=== PATIENT | male | born 1970 | race Caucasian/White ===

== ENCOUNTER 2018-03-29 14:38 | Outpatient (CLI) | payer OTHER ==
[~2018-03-29 14:38] MED LIST: OMEP-84 PO
== END 2018-03-29 23:59 | disposition home or self-care (01) ==
LOC: RAD 14:38
PROVIDERS: ATTEND Chiropractor
DX: M48.07 Spinal stenosis, lumbosacral region (principal)
CPT/HCPCS: 72110; 72190

== ENCOUNTER 2020-09-18 15:15 | Outpatient (CLI) | payer BC ==
[2020-09-18 19:34] LABS: BASOPHILS % (AUTO) 0.4 % (0-1); EOSINOPHILS # (AUTO) 0.7 X10'3 (0-0.9); EOSINOPHILS % (AUTO) 7.6 % (0-6); HEMATOCRIT 50.3 % (42.0-52.0); HEMOGLOBIN 16.6 g/dl (14.0-17.9); LYMPHOCYTES # (AUTO) 3.4 X10'3 (1.1-4.8); LYMPHOCYTES % (AUTO) 37.2 % (21-51); MEAN CORPUSCULAR HEMOGLOBIN 30.2 PG (27.0-31.0); MEAN CORPUSCULAR VOLUME 91.5 FL (78-98); MEAN PLATELET VOLUME 9.5 FL (7.4-10.4); MONOCYTES # (AUTO) 0.7 X10'3 (0-0.9); MONOCYTES % (AUTO) 7.6 % (2-12); NEUTROPHILS # (AUTO) 4.3 X10'3 (1.8-7.7); NEUTROPHILS % (AUTO) 47.2 % (42-75); PLATELET COUNT 250 X10'3 (140-440); RED CELL DISTRIBUTION WIDTH 14.5 % (11.5-14.5)
[2020-09-18 19:41] LABS: ALANINE AMINOTRANSFERASE 21 U/L (12-78); ALBUMIN/GLOBULIN RATIO 1.1 (1.1-1.5); ALKALINE PHOSPHATASE 73 IU/L (46-116); AMYLASE 49 U/L (25-115); ANION GAP 7 (8-16); ASPARTATE AMINO TRANSFERASE 21 U/L (10-37); BILIRUBIN,TOTAL 0.6 MG/DL (0.1-1.0); BLOOD UREA NITROGEN 11 MG/DL (7-18); BUN/CREATININE RATIO 10.7 (5.4-32.0); C-REACTIVE PROTEIN 0.09 MG/DL (0.0-0.5); CALCIUM 9.2 MG/DL (8.5-10.1); CHLORIDE 106 MMOL/L (99-107); CREATININE 1.03 MG/DL (0.60-1.10); GLUCOSE 89 MG/DL (70-104); LIPASE 110 U/L (73-393); POTASSIUM 4.2 MMOL/L (3.5-5.1); SODIUM 143 MMOL/L (135-145); TOTAL CARBON DIOXIDE 29.9 MMOL/L (24-32); TOTAL PROTEIN 7.6 G/DL (6.4-8.2); eGFR 77 ML/MIN
== END 2020-09-18 23:59 | disposition home or self-care (01) ==
LOC: LAB 15:15
PROVIDERS: ATTEND Family Medicine
DX: K21.9 Gastro-esophageal reflux disease without esophagitis (principal); R10.9 Unspecified abdominal pain
CPT/HCPCS: 36415; 80053; 82150; 83690; 85025; 85651; 86140

== ENCOUNTER 2020-09-26 10:35 | Outpatient (CLI) | payer BC | END 2020-09-26 23:59 | disposition home or self-care (01) | LOC: RAD 10:35 | PROVIDERS: ATTEND Family Medicine | DX: K86.89 Other specified diseases of pancreas (principal) | CPT/HCPCS: 76775 ==

== ENCOUNTER 2020-11-04 15:47 | Day surgery (SDC) | payer BC ==
[~2020-11-04] VITALS: Ht 182.9 cm; Wt 92.3 kg
[2020-11-04 16:00] VITALS: BP 142/78
[2020-11-04] MEDS ORDERED: NO HOME MEDS (16:27)
[2020-11-04] MEDS ORDERED: MAGN24002 PO (16:29)
[2020-11-04] MEDS ORDERED: LIDOcaine Viscous 15ml cup ONE (17:35)
[2020-11-04] MEDS ORDERED: MIDAZolam 1 MG/ML 5ML VIAL ONE (17:35)
[2020-11-04] MEDS ORDERED: fentaNYL/PF 50MCG/1 ML 2ML syringe ONE (17:35)
[2020-11-04 18:35] VITALS: BP 129/79
[2020-11-04 18:45] VITALS: BP 128/81
[2020-11-04 18:55] VITALS: BP 120/84
[2020-11-04 19:05] VITALS: BP 128/72
== END 2020-11-04 19:15 | disposition home or self-care (01) ==
LOC: GI LAB 15:47
PROVIDERS: ATTEND Internal Medicine Gastroenterology
DX: Z12.11 Encounter for screening for malignant neoplasm of colon (principal); R10.13 Epigastric pain; K57.30 Diverticulosis of large intestine without perforation or abscess without bleeding; K63.89 Other specified diseases of intestine; K29.80 Duodenitis without bleeding; K26.9 Duodenal ulcer, unspecified as acute or chronic, without hemorrhage or perforation; K21.00 Gastro-esophageal reflux disease with esophagitis, without bleeding; K29.70 Gastritis, unspecified, without bleeding
CPT/HCPCS: 43239; 45380; 99152; 99153; J2250; J3010; J7040; A4620

== ENCOUNTER → 2021-05-28 | Outpatient (CLI) | payer BC ==
[~2021-05-28] MED LIST changes: +MAGN24002 PO; +NO HOME MEDS; -OMEP-84 PO
[2021-05-28 15:43] LABS: BASOPHILS # (AUTO) 0.1 X10'3 (0-0.2); BASOPHILS % (AUTO) 0.9 % (0-1); EOSINOPHILS # (AUTO) 0.2 X10'3 (0-0.9); EOSINOPHILS % (AUTO) 3.4 % (0-6); HEMATOCRIT 47.5 % (42.0-52.0); LYMPHOCYTES # (AUTO) 2.5 X10'3 (1.1-4.8); LYMPHOCYTES % (AUTO) 37.7 % (21-51); MEAN CORPUSCULAR HEMOGLOBIN 29.8 PG (27.0-31.0); MEAN CORPUSCULAR HGB CONC 33.7 g/dL (33.0-36.5); MEAN CORPUSCULAR VOLUME 88.5 FL (78-98); MONOCYTES # (AUTO) 0.6 X10'3 (0-0.9); MONOCYTES % (AUTO) 8.8 % (2-12); NEUTROPHILS # (AUTO) 3.3 X10'3 (1.8-7.7); NEUTROPHILS % (AUTO) 49.2 % (42-75); PLATELET COUNT 251 X10'3 (140-440); RED BLOOD COUNT 5.36 X10'6 (4.70-6.10); RED CELL DISTRIBUTION WIDTH 13.9 % (11.5-14.5); WHITE BLOOD COUNT 6.7 X10'3 (4.5-11.0)
[2021-05-28 16:08] LABS: ALANINE AMINOTRANSFERASE 25 U/L (12-78); ALBUMIN/GLOBULIN RATIO 1.3 (1.1-1.5); ALKALINE PHOSPHATASE 64 IU/L (46-116); ANION GAP 7 (8-16); ASPARTATE AMINO TRANSFERASE 17 U/L (10-37); BILIRUBIN,TOTAL 0.5 MG/DL (0.1-1.0); BLOOD UREA NITROGEN 13 MG/DL (7-18); BUN/CREATININE RATIO 12.9 (5.4-32.0); CALCIUM 9.6 MG/DL (8.5-10.1); CHLORIDE 105 MMOL/L (99-107); CHOLESTEROL 195 MG/DL (0-200); CREATININE 1.01 MG/DL (0.60-1.10); GLUCOSE 91 MG/DL (70-104); HDL CHOLESTEROL 64 MG/DL (35-60); LDL CHOLESTEROL 112 MG/DL (50-100); POTASSIUM 4.7 MMOL/L (3.5-5.1); SODIUM 142 MMOL/L (135-145); TOTAL CARBON DIOXIDE 29.9 MMOL/L (24-32); TRIGLYCERIDES 56 MG/DL (20-135); eGFR 78 ML/MIN
== END | disposition home or self-care (01) ==
LOC: LAB 15:20
PROVIDERS: ATTEND Family Medicine
DX: Z00.00 Encounter for general adult medical examination without abnormal findings (principal)
CPT/HCPCS: 36415; 80053; 80061; 84153; 85025

== ENCOUNTER 2022-04-14 14:42 | Outpatient (CLI) | payer BC ==
[2022-04-14 15:16] LABS: BASOPHILS % (AUTO) 0.6 % (0-1); EOSINOPHILS # (AUTO) 0.1 X10'3 (0-0.9); EOSINOPHILS % (AUTO) 1.6 % (0-6); HEMATOCRIT 48.6 % (42.0-52.0); HEMOGLOBIN 15.9 g/dl (14.0-17.9); LYMPHOCYTES # (AUTO) 1.9 X10'3 (1.1-4.8); LYMPHOCYTES % (AUTO) 25.2 % (21-51); MEAN CORPUSCULAR HEMOGLOBIN 29.6 PG (27.0-31.0); MEAN CORPUSCULAR HGB CONC 32.7 g/dL (33.0-36.5); MEAN CORPUSCULAR VOLUME 90.3 FL (78-98); MEAN PLATELET VOLUME 9.1 FL (7.4-10.4); MONOCYTES # (AUTO) 0.6 X10'3 (0-0.9); MONOCYTES % (AUTO) 7.8 % (2-12); NEUTROPHILS % (AUTO) 64.8 % (42-75); PLATELET COUNT 306 X10'3 (140-440); RED BLOOD COUNT 5.39 X10'6 (4.70-6.10); RED CELL DISTRIBUTION WIDTH 14.7 % (11.5-14.5); WHITE BLOOD COUNT 7.6 X10'3 (4.5-11.0)
[2022-04-14 15:28] LABS: ALANINE AMINOTRANSFERASE 25 U/L (12-78); ALBUMIN 3.8 G/DL (3.4-5.0); ALBUMIN/GLOBULIN RATIO 1.1 (1.1-1.5); ALKALINE PHOSPHATASE 56 IU/L (46-116); ANION GAP 10 (8-16); ASPARTATE AMINO TRANSFERASE 19 U/L (10-37); BILIRUBIN,TOTAL 0.8 MG/DL (0.1-1.0); BLOOD UREA NITROGEN 11 MG/DL (7-18); BUN/CREATININE RATIO 10.2 (5.4-32.0); CALCIUM 9.1 MG/DL (8.5-10.1); CHLORIDE 104 MMOL/L (99-107); CHOLESTEROL 193 MG/DL (0-200); CREATININE 1.08 MG/DL (0.60-1.10); GLUCOSE 96 MG/DL (70-104); HDL CHOLESTEROL 64 MG/DL (35-60); LDL CHOLESTEROL 114 MG/DL (50-100); SODIUM 140 MMOL/L (135-145); TOTAL CARBON DIOXIDE 26.4 MMOL/L (24-32); TOTAL PROTEIN 7.4 G/DL (6.4-8.2); TRIGLYCERIDES 70 MG/DL (20-135); eGFR 72 ML/MIN
== END 2022-04-14 23:59 | disposition home or self-care (01) ==
LOC: LAB 14:42
PROVIDERS: ATTEND Family Medicine
DX: Z00.00 Encounter for general adult medical examination without abnormal findings (principal); D72.10 Eosinophilia, unspecified; N52.9 Male erectile dysfunction, unspecified
CPT/HCPCS: 36415; 80053; 80061; 84153; 84402; 84403; 85025